=== PATIENT | female | born 2000 | race Caucasian/White ===

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

== ENCOUNTER 2024-09-08 09:55 | Emergency (ER) | payer OTHER ==
[~2024-09-08] VITALS: Ht 170.2 cm; Wt 106.6 kg
[~2024-09-08 09:55] MED LIST changes: +ABILIFY5 MG PO; +AUGMENTIN 500-1 EACH PO; +BACTRIM DS TAB1 EACH PO; +LEXAPRO10 MG PO
[2024-09-08 10:07] VITALS: TEMP 98.3
[2024-09-08] MEDS: Morphine 4mg INJECTION 4 MG/ML INJ IV STA (10:24)
[2024-09-08] MEDS: ONDANSETRON HCL INJ 2MG/ML 2ML 2 MG/ML VIAL IV STA (10:24)
[2024-09-08] MEDS: SODIUM CHLORIDE 0.9% 1000ML 2,000 ML IV STA (10:32)
[2024-09-08 10:34] LABS: BASOPHILS # (AUTO) 0.1 (0.0-0.1); BASOPHILS % 0.7 % (0.0-1.0); EOSINOPHILS # (AUTO) 0.3 (0.0-0.4); EOSINOPHILS % 1.9 % (0.0-6.0); HEMATOCRIT 47.2 % (34.2-44.1); HEMOGLOBIN 14.8 g/dL (12.0-16.0); LYMPHOCYTES # (AUTO) 2.4 (1.0-3.2); LYMPHOCYTES % 16.1 % (18.0-39.1); MEAN CORPUSCULAR HEMOGLOBIN 27.1 pg (28-32); MEAN CORPUSCULAR HGB CONC 31.4 g/dL (31-35); MEAN CORPUSCULAR VOLUME 86.3 fL (81-99); MONOCYTES # (AUTO) 0.8 (0.2-0.8); MONOCYTES % 5.3 % (4.4-11.3); NEUTROPHILS # (AUTO) 11.3 (2.1-6.9); NEUTROPHILS % 74.7 % (38.7-80.0); PLATELET COUNT 294 x10e3/uL (140-360); RED BLOOD COUNT 5.47 x10e6/uL (3.6-5.1); RED CELL DISTRIBUTION WIDTH 13.9 % (11.7-14.4); WHITE BLOOD COUNT 15.04 x10e3/uL (4.8-10.8)
[2024-09-08 11:01] LABS: CLARITY,URINE CLOUDY (CLEAR); COLOR,URINE YELLOW (YELLOW)
[2024-09-08 11:02] LABS: PREGNANCY TEST, URINE NEGATIVE (NEGATIVE)
[2024-09-08 11:03] LABS: BILIRUBIN,URINE SMALL (NEGATIVE); GLUCOSE, URINE NEGATIVE (NEGATIVE); KETONES,URINE NEGATIVE (NEGATIVE); LEUKOCYTE ESTERASE ,URINE NEGATIVE (NEGATIVE); NITRITE,URINE NEGATIVE (NEGATIVE); PH,URINE 5.5 (5 - 7); PROTEIN,URINE DIPSTICK 1+ (NEGATIVE); URINE UROBILINOGEN 0.2 mg/dL (0.2 - 1)
[2024-09-08 11:04] LABS: OPIATES SCREEN,URINE NEGATIVE (NEGATIVE)
[2024-09-08 11:05] LABS: AMPHETAMINES SCREEN,URINE NEGATIVE (NEGATIVE); BENZODIAZEPINES SCREEN,URINE POSITIVE (NEGATIVE); CANNABINOIDS SCREEN,URINE POSITIVE (NEGATIVE); COCAINE SCREEN,URINE NEGATIVE (NEGATIVE); METHADONE SCREEN, URINE NEGATIVE (NEGATIVE); PHENCYCLIDINE SCREEN,URINE NEGATIVE (NEGATIVE)
[2024-09-08 11:13] LABS: ALBUMIN/GLOBULIN RATIO 1.1 (0.8-2.0); ANION GAP 16.7 mmol/L (8-16); BILIRUBIN,TOTAL 0.4 mg/dL (0.2-1.2); CALCIUM 9.6 mg/dL (8.4-10.2); CREATININE, SERUM 1.08 mg/dL (0.57-1.11); POTASSIUM 3.7 mmol/L (3.5-5.1); TOTAL PROTEIN 7.5 g/dL (6.5-8.1)
[2024-09-08 11:14] LABS: EPITHELIAL CELLS,URINE MODERATE /LPF
[2024-09-08] MEDS ORDERED: IOPAMIDOL 370 MG/ML 100 ML INFUS..BTL INJ ONE (11:14)
[2024-09-08 11:15] LABS: BACTERIA,URINE MANY /HPF; RBC,URINE 21-50 /HPF (0-5)
[2024-09-08] MEDS: SODIUM CHLORIDE 0.9% 1000ML 1,000 ML IV STA (13:27)
[2024-09-08] MEDS: ACETAMINOPHEN 325 MG TAB PO STA (13:28)
[2024-09-08] MEDS ORDERED: ONDANSETRON ODT4 MG PO (13:32)
[2024-09-08] MEDS ORDERED: AMOX TR-K CLV1 EAC2 PO (13:32)
[2024-09-08 14:00] VITALS: PULSE 55; RESP 14; O2SAT 98
[2024-09-11 11:22] LABS: ABG PH 7.32 (7.35-7.45)
== END 2024-09-08 15:10 | disposition home or self-care (01) ==
LOC: ER 10:09
DX: R50.9 Fever, unspecified (principal); J18.9 Pneumonia, unspecified organism; R11.2 Nausea with vomiting, unspecified; R10.84 Generalized abdominal pain; F44.89 Other dissociative and conversion disorders; F41.9 Anxiety disorder, unspecified
CPT/HCPCS: 36415; 71045; 74177; 80053; 80307; 80320; 81001; 81025; 82805; 83605; 83690; 85025; 87040; 99284; J2270; J2405; J2543; J7030; Q9967

== ENCOUNTER 2024-09-11 12:56 | Emergency (ER) | payer OTHER ==
[~2024-09-11] VITALS: Ht 170.2 cm; Wt 106.6 kg
[~2024-09-11 12:56] MED LIST changes: +AMOX TR-K CLV1 EAC2 PO; +ONDANSETRON ODT4 MG PO
[2024-09-11 13:14] VITALS: PULSE 56; RESP 18; TEMP 98.5; O2SAT 99
== END 2024-09-11 14:29 | disposition home or self-care (01) ==
LOC: ER 13:17
DX: R06.02 Shortness of breath (principal); R07.89 Other chest pain; F41.9 Anxiety disorder, unspecified; F32.A Depression, unspecified; F44.9 Dissociative and conversion disorder, unspecified
CPT/HCPCS: 99282

== ENCOUNTER 2024-12-15 23:23 | Emergency (ER) | payer OTHER ==
[~2024-12-15] VITALS: Ht 170.2 cm; Wt 108.9 kg
[2024-12-15 23:54] VITALS: PULSE 69; RESP 20; TEMP 98.4; O2SAT 100
== END 2024-12-16 00:14 | disposition home or self-care (01) ==
LOC: ER 12-16 00:05
DX: R05.9 Cough, unspecified (principal); F44.4 Conversion disorder with motor symptom or deficit
CPT/HCPCS: 99282

== ENCOUNTER 2025-07-27 08:56 | Inpatient (IN) | payer OTHER ==
[~2025-07-27] VITALS: Ht 170.2 cm; Wt 108.9 kg
[2025-07-27 09:15] VITALS: TEMP 97.8
[2025-07-27] MEDS: SODIUM CHLORIDE 0.9% 1000ML 1,000 ML IV STA (09:48)
[2025-07-27] MEDS: PROMETHAZINE 12.5MG/ NACL 0.9% 12.5 MG/50 ML BAG IV ONE (09:50)
[2025-07-27 09:59] LABS: BASOPHILS % 0.4 % (0.0-1.0); EOSINOPHILS % 0.4 % (0.0-6.0); LYMPHOCYTES % 9.0 % (18.0-39.1); MONOCYTES % 5.0 % (4.4-11.3); NEUTROPHILS % 84.8 % (38.7-80.0); RED CELL DISTRIBUTION WIDTH 12.5 % (11.7-14.4)
[2025-07-27 10:21] LABS: INR 1.04
[2025-07-27 10:22] LABS: EST GLOMERULAR FILTRATION RATE 99 ML/MIN (>=60)
[2025-07-27] MEDS ORDERED: ONDANSETRON HCL INJ 2MG/ML 2ML 2 MG/ML VIAL IV STA (10:27)
[2025-07-27] MEDS: DIPHENHYDRAMINE HCL INJ 50 MG/ML VIAL IV ONE (10:28)
[2025-07-27 10:29] LABS: LEUKOCYTE ESTERASE ,URINE TRACE (NEGATIVE); PROTEIN,URINE DIPSTICK 1+ (NEGATIVE); URINE UROBILINOGEN 1 mg/dL (0.2 - 1)
[2025-07-27] MEDS ORDERED: HYDROMORPHONE 1MG/1ML INJ ONE (10:55)
[2025-07-27] MEDS: HYDROMORPHONE 1MG/1ML INJ IV STA (10:58)
[2025-07-27 11:05] LABS: EPITHELIAL CELLS,URINE MANY /LPF
[2025-07-27 11:18] LABS: AMPHETAMINES SCREEN,URINE NEGATIVE (NEGATIVE); CANNABINOIDS SCREEN,URINE POSITIVE (NEGATIVE); COCAINE SCREEN,URINE NEGATIVE (NEGATIVE); METHADONE SCREEN, URINE NEGATIVE (NEGATIVE); OPIATES SCREEN,URINE NEGATIVE (NEGATIVE)
[2025-07-27] MEDS ORDERED: Morphine 4mg INJECTION 4 MG/ML INJ IV PRN (12:00)
[2025-07-27] MEDS ORDERED: PROMETHAZINE HCL (IM) 25 MG/ML VIAL IM PRN (12:00)
[2025-07-27 12:01] VITALS: PULSE 47; RESP 13
[2025-07-27] MEDS: SODIUM CHLORIDE 0.9% 1000ML 1,000 ML IV SCH (14:34)
[2025-07-27] MEDS: ONDANSETRON HCL INJ 2MG/ML 2ML 2 MG/ML VIAL IV PRN (14:37)
[2025-07-27] MEDS ORDERED: LAMOTRIGINE25 MG PO (14:43)
[2025-07-27] MEDS ORDERED: LEVOTHYROXINE75 MCG PO (14:43)
[2025-07-27] MEDS ORDERED: PROTONIX40 MG/ML PO (14:43)
[2025-07-27 16:00] VITALS: BP 108/64; PULSE 50; RESP 16; TEMP 99; O2SAT 98
[2025-07-27] MEDS ORDERED: LORAZEPAM INJ 2 MG/ML VIAL IV PRN (16:45)
[2025-07-27] MEDS: KETOROLAC TROMETHAMINE 30 MG/ML VIAL IV PRN (16:57)
[2025-07-27 20:00] VITALS: BP 145/83; PULSE 53; RESP 18; TEMP 98.6; O2SAT 100
[2025-07-27] MEDS: METOCLOPRAMIDE HCL 10 MG/2ML VIAL IV SCH (22:02)
[2025-07-28] VITALS (7 sets, daily range): BP systolic 84–139; BP diastolic 55–83; PULSE 40–60; RESP 16–20; TEMP 97.9–98.6; O2SAT 98–100
[2025-07-28] MEDS ORDERED: LIDOCAINE VISC 2% SOLN 15 ML UDC ONE (00:18)
[2025-07-28] MEDS ORDERED: MAGNESIUM/ALUMINUM/SIMETHICONE 30 ML UDC ONE (00:18)
[2025-07-28] MEDS ORDERED: BELLADONNA ALK/PHENOBARBITAL 5 ML UDC ONE (00:18)
[2025-07-28] MEDS: DONNATAL/LIDOCAINE/MAALOX 30 ML SUSP PO ONE (00:35)
[2025-07-28 05:46] LABS: BASOPHILS % 0.4 % (0.0-1.0); EOSINOPHILS % 0.3 % (0.0-6.0); LYMPHOCYTES % 21.8 % (18.0-39.1); MONOCYTES % 8.5 % (4.4-11.3); NEUTROPHILS % 68.7 % (38.7-80.0); RED CELL DISTRIBUTION WIDTH 12.6 % (11.7-14.4)
[2025-07-28 06:09] LABS: EST GLOMERULAR FILTRATION RATE 125.0 ML/MIN (>=60)
[2025-07-28] MEDS: CYANOCOBALAMIN INJ 1,000 MCG/ML VIAL IM SCH (10:42)
[2025-07-28] MEDS: CYANOCOBALAMIN INJ 1,000 MCG/ML VIAL IM ONE (23:45)
[2025-07-29 06:15] VITALS: BP 119/75; PULSE 65; RESP 17; TEMP 98.3
[2025-07-29 06:33] LABS: HEPATITIS A ANTIBODY IGM (P) Negative; HEPATITIS B CORE IGM (P) Negative; HEPATITIS B SURFACE AG (P) Negative
[2025-07-29 08:36] VITALS: BP 140/83; PULSE 44; RESP 18; TEMP 97.2; O2SAT 99
[2025-07-29 09:00] VITALS: BP 140/83; PULSE 44; RESP 18; TEMP 97.2; O2SAT 99
[2025-07-29] MEDS: CYANOCOBALAMIN INJ 1,000 MCG/ML VIAL IM SCH (09:00)
[2025-07-29 12:48] VITALS: BP 157/82; PULSE 44; RESP 19; TEMP 98; O2SAT 97
[2025-07-29 15:47] VITALS: BP 153/83; PULSE 54; RESP 18; TEMP 98; O2SAT 99
[2025-07-29] MEDS ORDERED: ATROPINE SULFATE 1 MG/ML VIAL IV PRN (18:30)
[2025-07-29 20:00] VITALS: BP 158/85; PULSE 40; RESP 18; TEMP 97.7; O2SAT 98
[2025-07-30] VITALS (8 sets, daily range): BP systolic 123–149; BP diastolic 66–82; PULSE 43–58; RESP 16–19; TEMP 97.5–98.6; O2SAT 98–100
[2025-07-31] VITALS (7 sets, daily range): BP systolic 132–143; BP diastolic 60–95; PULSE 48–85; RESP 16–20; TEMP 97.7–98.8; O2SAT 96–99
[2025-07-31 06:51] LABS: BASOPHILS % 0.7 % (0.0-1.0); EOSINOPHILS % 2.4 % (0.0-6.0); LYMPHOCYTES % 22.2 % (18.0-39.1); MONOCYTES % 7.5 % (4.4-11.3); NEUTROPHILS % 66.9 % (38.7-80.0); RED CELL DISTRIBUTION WIDTH 12.4 % (11.7-14.4)
[2025-07-31 07:17] LABS: EST GLOMERULAR FILTRATION RATE 122.0 ML/MIN (>=60)
[2025-07-31] MEDS: DEXTROSE 5%/0.9% SOD CHL 1,000 ML IV ONE (08:23)
[2025-07-31] MEDS: POTASSIUM CHLORIDE 20 MEQ TAB CR PO ONE (08:23)
[2025-07-31] MEDS: D5NS/KCL 20MEQ 1,000 ML IV SCH (12:17)
[2025-07-31] MEDS ORDERED: PROPOFOL IV EMULSION 10 MG/ML 20 ML VIAL ONE ×2 (13:08→14:58)
[2025-07-31] MEDS ORDERED: ROCURONIUM BROMIDE 0 ML IV ONE ×2 (13:08→14:57)
[2025-07-31] MEDS ORDERED: LIDOCAINE HCL 2% LOCAL INJ 5 ML SDV VIAL INJ ONE ×2 (13:08→14:57)
[2025-07-31] MEDS ORDERED: FENTANYL CITRATE/PF 100MCG/2 ML INJ ONE ×3 (13:09→15:49)
[2025-07-31] MEDS ORDERED: SUCCINYLCHOLINE CHLORIDE 20 MG/ML 10ML VIAL ONE (14:58)
[2025-07-31] MEDS ORDERED: MIDAZOLAM HCL 2 MG/2 ML VIAL ONE (15:01)
[2025-07-31] MEDS ORDERED: FAMOTIDINE 20 MG/2 ML VIAL IV ONE (15:01)
[2025-07-31] MEDS ORDERED: DEXAMETHASONE SOD PHOS INJ 4 MG/ML SDV ONE (15:14)
[2025-07-31] MEDS ORDERED: KETOROLAC TROMETHAMINE 30 MG/ML VIAL ONE (15:14)
[2025-07-31] MEDS ORDERED: ONDANSETRON HCL INJ 2MG/ML 2ML 2 MG/ML VIAL ONE (15:14)
[2025-07-31] MEDS ORDERED: SUGAMMADEX SODIUM 200 MG/2 ML VIAL IV ONE (15:21)
[2025-07-31] MEDS ORDERED: LACTATED RINGER'S 1,000 ML ONE (15:49)
[2025-07-31] MEDS ORDERED: HYDROMORPHONE 2MG/ML ONE (15:49)
[2025-07-31] MEDS ORDERED: LABETALOL HCL 20 ML ONE (15:49)
[2025-07-31] MEDS ORDERED: SODIUM CHLORIDE 0.9% 1000ML 1,000 ML IV SCH (16:00)
[2025-07-31] MEDS: ONDANSETRON HCL INJ 2MG/ML 2ML 2 MG/ML VIAL IV PRN (20:00)
[2025-07-31] MEDS: HYDROCODONE/APAP 5MG-325MG TAB PO PRN (23:20)
[2025-08-01 04:00] VITALS: BP 154/90; PULSE 51; RESP 16; TEMP 97.8; O2SAT 99
[2025-08-01 06:29] VITALS: PULSE 63; RESP 20; O2SAT 98
[2025-08-01 06:31] LABS: BASOPHILS % 0.1 % (0.0-1.0); EOSINOPHILS % 0.0 % (0.0-6.0); LYMPHOCYTES % 7.9 % (18.0-39.1); MONOCYTES % 4.9 % (4.4-11.3); NEUTROPHILS % 86.5 % (38.7-80.0); RED CELL DISTRIBUTION WIDTH 12.4 % (11.7-14.4)
[2025-08-01 07:37] LABS: EST GLOMERULAR FILTRATION RATE 105 ML/MIN (>=60)
[2025-08-01] MEDS: FOLIC ACID 1 MG TAB PO SCH (07:51)
[2025-08-01 08:20] VITALS: BP 142/83; PULSE 53; RESP 16; TEMP 98.7; O2SAT 99
[2025-08-01 09:15] VITALS: BP 142/83; PULSE 53; RESP 16; TEMP 98.7; O2SAT 99
== END 2025-08-01 12:45 | disposition home or self-care (01) | DRG 418 ==
LOC: ER 09:17 → ERHOLD 11:55 → MED/SURG2 13:52
PROVIDERS: ADMIT Internal Medicine; ATTEND Internal Medicine
PROC: 0FT44ZZ Resection of Gallbladder, Percutaneous Endoscopic Approach (ICD-10-PCS; principal; 2025-07-31 15:01)
DX: K81.1 Chronic cholecystitis (principal); N39.0 Urinary tract infection, site not specified; K31.84 Gastroparesis; R00.1 Bradycardia, unspecified; I49.1 Atrial premature depolarization; K76.0 Fatty (change of) liver, not elsewhere classified; F44.9 Dissociative and conversion disorder, unspecified; E53.8 Deficiency of other specified B group vitamins; E87.6 Hypokalemia; E16.2 Hypoglycemia, unspecified; E87.8 Other disorders of electrolyte and fluid balance, not elsewhere classified; R63.0 Anorexia; R63.4 Abnormal weight loss; E66.9 Obesity, unspecified; Z71.3 Dietary counseling and surveillance; E03.9 Hypothyroidism, unspecified; Z68.37 Body mass index [BMI] 37.0-37.9, adult; R16.0 Hepatomegaly, not elsewhere classified; F12.10 Cannabis abuse, uncomplicated; Z83.79 Family history of other diseases of the digestive system; Z71.81 Spiritual or religious counseling; Z79.899 Other long term (current) drug therapy
CPT/HCPCS: 36415; 74181; 76705; 80048; 80053; 80307; 81001; 82550; 82607; 82746; 83690; 83735; 84443; 84484; 84702; 85025; 85610; 85730; 87086; 88304; 93306; 94799; 99252; 99284; J0330; J0461; J0696; J1100; J1171; J1200; J1308; J1885; J2003; J2250; J2270; J2405; J2470; J2550; J2765; J3420; J7030; J7042